=== PATIENT | female | born 1980 | race Caucasian/White ===

== ENCOUNTER 2019-07-14 22:02 | Emergency (ER) | payer MEDICAID ==
[~2019-07-14] VITALS: Ht 167.6 cm; Wt 63.5 kg
--- NOTE | 2019-07-14 23:30 | NUR ---
DRAINING ABSCESS NOTED TO LEFT AXILLA, ERMD AT BEDSIDE FOR HX AND PHYSICAL CLEANED SITE AND DRESSED
[2019-07-14 23:51] LABS: *URINE HCG, QUAL NEGATIVE (NEGATIVE)
--- NOTE | 2019-07-14 23:59 | NUR ---
Patient eloped from facility. ER physician notified.
--- NOTE | 2019-07-14 23:59 | NUR ---
PT STARTED SCREAMING ON HER PHONE AND THEN ELOPED
== END 2019-07-15 00:02 | disposition left against medical advice (07) ==
LOC: ER 22:02
DX: L02.412 Cutaneous abscess of left axilla (principal); L03.112 Cellulitis of left axilla
CPT/HCPCS: 84703; A4663